=== PATIENT | female | born 1975 | race Caucasian/White ===

== ENCOUNTER 2018-01-30 07:32 | Outpatient (CLI) | payer BC ==
--- NOTE | 2018-01-30 08:28 | CT ---
CT OF ABDOMEN AND PELVIS PERFORMED WITH INTRAVENOUS CONTRAST ENHANCEMENT: HISTORY: Abdominal and rectal pain for 2 years progressively getting worse. History of 2 C-sections, hysterect kami, and tubal ligation. FINDINGS: The patient as premedicated for this examination due to contrast allergy. The lung bases are clear. The liver, spleen, pancreas, and gallbladder regions appear unremarkable. Right and left adrenal glands and right and left kidneys are normal in size in appearance. There is no significant periaortic or mesenteric lymphadenopathy. CT OF PELVIS PERFORMED WITH COTNRAST ENHANCEMENT: There are some follicles involving the adnexa which are somewhat high in position. There is no signi ficant adenopathy or mass. The appendix is normal. IMPRESSION: 1. No acute changes of the abdomen or pelvis. 2. Postop hysterectomy change. POS: [facility]
== END 2018-01-30 07:33 | disposition home or self-care (01) ==
LOC: CT 07:32
PROVIDERS: ATTEND Internal Medicine Gastroenterology
DX: K62.89 Other specified diseases of anus and rectum (principal); R10.9 Unspecified abdominal pain; Z90.710 Acquired absence of both cervix and uterus
CPT/HCPCS: 74177

== ENCOUNTER 2021-05-03 07:35 | Emergency (ER) | payer BC | END 2021-05-03 09:50 | disposition home or self-care (01) | LOC: ERS 07:35 | DX: S93.431A Sprain of tibiofibular ligament of right ankle, initial encounter (principal); X50.1XXA Overexertion from prolonged static or awkward postures, initial encounter; Z87.891 Personal history of nicotine dependence ==

== ENCOUNTER 2023-06-07 14:01 | Outpatient (CLI) | payer BC | END 2023-06-07 14:02 | disposition home or self-care (01) | LOC: BICRAD 14:01 | PROVIDERS: ATTEND Internal Medicine | DX: M25.552 Pain in left hip (principal); M25.571 Pain in right ankle and joints of right foot ==

== ENCOUNTER 2023-06-22 07:29 | Outpatient (CLI) | payer BC | END 2023-06-22 07:30 | disposition home or self-care (01) | LOC: ULT 07:29 | PROVIDERS: ATTEND Internal Medicine | DX: R10.2 Pelvic and perineal pain (principal); Z90.710 Acquired absence of both cervix and uterus | CPT/HCPCS: 76856 ==

== ENCOUNTER 2024-03-26 14:14 | Outpatient (CLI) | payer BC | END 2024-03-26 14:15 | disposition home or self-care (01) | LOC: DTY/OP 14:14 | PROVIDERS: ATTEND Internal Medicine | DX: E66.811 Obesity, class 1 (principal); Z68.33 Body mass index [BMI] 33.0-33.9, adult | CPT/HCPCS: 97802 ==

== ENCOUNTER 2024-05-07 08:50 | Outpatient (CLI) | payer BC | END 2024-05-07 08:51 | disposition home or self-care (01) | LOC: BICMAMMO 08:50 | PROVIDERS: ATTEND Internal Medicine | DX: Z12.31 Encounter for screening mammogram for malignant neoplasm of breast (principal); Z80.3 Family history of malignant neoplasm of breast | CPT/HCPCS: 77063; 77067 ==

== ENCOUNTER 2025-05-22 13:32 | Outpatient (CLI) | payer BC | END 2025-05-22 13:33 | disposition home or self-care (01) | LOC: BICMAMMO 13:32 → EDUNIT# 13:45 | PROVIDERS: ATTEND Internal Medicine | DX: Z12.31 Encounter for screening mammogram for malignant neoplasm of breast (principal); R92.333 Mammographic heterogeneous density, bilateral breasts; Z80.3 Family history of malignant neoplasm of breast | CPT/HCPCS: 77063; 77067 ==